=== PATIENT | male | born 1930 | race Caucasian/White ===

== ENCOUNTER → 2018-12-08 | Outpatient (CLI) | payer MEDICARE, MEDICAID ==
--- NOTE | 2018-12-08 18:20 | PCVCIMAG ---
EXAM: BILATERAL LOWER EXTREMITY ARTERIAL DUPLEX INDICATION: Peripheral Arterial Disease. Leg pain. 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 FINDINGS: Right Leg: Common femoral and femoral arteries are patent. Superficial femoral artery arteries are patent. The anterior tibial, peroneal, and posterior tibial arteries are patent. 80% stenosis proximal dorsalis pedis. Left Leg: Common femoral and profunda femoral arteries are patent. Superficial femoral artery and popliteal arteries are patent. Anterior tibial artery is patent. 70% stenosis proximal dorsalis pedis. Peroneal artery is patent. The posterior tibial artery is patent until its distal most portion where it shows complete occlusion. IMPRESSION: 80% stenosis proximal right dorsalis pedis. Otherwise no flow limiting stenosis in the right lower extremity. 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 70% stenosis proximal left dorsalis pedis. LOC:[id number]
== END | disposition home or self-care (01) ==
LOC: PCVCIMAG 14:46
PROVIDERS: ATTEND Nuclear Medicine Nuclear Cardiology
DX: I73.9 Peripheral vascular disease, unspecified (principal); L97.903 Non-pressure chronic ulcer of unspecified part of unspecified lower leg with necrosis of muscle; L97.909 Non-pressure chronic ulcer of unspecified part of unspecified lower leg with unspecified severity
CPT/HCPCS: 93925